=== PATIENT | male | born 1960 | race Caucasian/White ===

== ENCOUNTER → 2019-10-05 12:15 | Outpatient (CLI) | payer BC, SELFPAY ==
--- NOTE | ~2019-10-05 | MR_ITS ---
EXAMINATION: MR knee RT wo con DATE: 10/05/2019 12:56 INDICATION: Anterior right knee pain. TECHNIQUE: Magnetic resonance imaging (MRI) of the right knee was performed without intravenous contr ast. Sequences included axial PD-weighted FS FSE, coronal PD-weighted FSE and PD-weighted FS FSE, sag ittal PD-weighted FSE, and sagittal T2-weighted FS FSE. COMPARISON: None. FINDINGS: Medial compartment: There is a complex tear of posterior horn of medial meniscus. There is shallow partial-thickness cart ilage loss of femoral condyle, worst at the central and lateral articular surface. There is cartilage surface irregularity of tibial condyle. There are tiny marginal osteophytes. Lateral compartment: Lateral meniscus is normal. Lateral compartment cartilage is normal. Patellofemoral compartment: There is full-thickness cartilage loss of patellar medial facet and deep partial thickness cartilage loss of patellar median ridge and lateral facet. There is full-thickness cartilage loss of central tr ochlea. Marginal osteophytes are noted. Ligaments and tendons: The anterior and posterior cruciate ligaments are normal. Medial collateral ligament and lateral víctor ateral ligament complex are normal. The patellar tendon is normal. Fluid: There is a small knee joint effusion. There is trace fluid in a Rich's cyst. IMPRESSION: 1. Severe chondrosis of patellofemoral compartment and mild chondrosis of medial compartment. 2. Complex tear of medial meniscus. 3. Small knee joint effusion. Reviewed, dictated and finalized at location A. NG MACHINE OPERATOR SEMIAUTOMATIC IMPRESSION: 1. Severe chondrosis of patellofemoral compartment and mild chondrosis of media l compartment. 2. Complex tear of medial meniscus. 3. Small knee joint effusion.
== END ==
PROVIDERS: Visit Provider Specialist
DX: S83.231A Complex tear of medial meniscus, current injury, right knee, initial encounter (principal); X58.XXXA Exposure to other specified factors, initial encounter; M25.461 Effusion, right knee
CPT/HCPCS: 73721